=== PATIENT | male | born 1945 | race Caucasian/White ===

== ENCOUNTER → 2016-09-30 | Day surgery (SDC) | payer MEDICARE, MEDICAID ==
[~2016-09-30] VITALS: Ht 182.9 cm; Wt 142.0 kg
[~2016-09-30] MED LIST: 0.9% Sodium Chloride 1,000 ML IV PRN; GABA600T2 PO; LIPOIC ACID PO; MONT10TA20 PO; PRAM0.252 PO; RES15 PO; SILD20TA14 PO; Sodium Chloride LOK Flush 10 mL Syringe IV PRN; TEST200V20 IM; TRAM50TA2 PO; ZOLP10TA5 PO; fentaNYL-PF 50 mCg/mL 2 mL Inj IVPUSH PRN
[2016-09-30 12:57] VITALS: BP 129/73; PULSE 60; RESP 16; O2SAT 96
--- NOTE | 2016-09-30 13:56 | PCM.ENDCOL ---
Colonoscopy Date of Service: Sep 30, 2016 Physician Luis Burgos MD Pre Procedure Diagnosis: Change in bowel pattern constipation to looser stools. Post Procedure Dx & Findings: Polyp hemorrhoids diverticular Procedure Colonoscopy PROCEDURE IN DETAIL: Prep adequate Withdrawal time 14 minutes After unremarkable rectal examination the Olympus video colonoscope was inserted patient's anal canal and was advanced to cecum. Landmarks were identified including the ileocecal valve and appendiceal orifice. Scope was withdrawn systematically. Visualized colonic mucosa showed healthy shiny mucosa with normal healthy-appearing vasculature. In the ascending colon, there was a 1 mm polyp was removed completely using cold forceps. In the descending colon there was a 3 mm polyp which was removed completely using cold snare. In the sigmoid colon a few small diverticuli. In the rectum retroflexion was done which showed hemorrhoids. Anal canal was inspected carefully on the way out and hemorrhoids noted. Impression Polyps times 2 status post complete removal Diverticulosis Hemorrhoids Recommendation Repeat colonoscopy 5 years Diverticular diet Presedation Assessment Risks and Benefits Informed consent was obtained from the patient after all risks and benefits including but not limited to drug reaction, infection, pain, bleeding, perforation, as well as alternatives were discussed. Patient monitoring Continuous pulse oximetry, cardiac monitoring, blood pressure monitoring, IV access, and oxygen at 2L per nasal cannula. Periprocedural Fentanyl: Fentanyl 75mcg Incrementally Midazolam: Midazolam 4mg Incrementally Complications There were no periprocedural complications identified. Post Procedure Plan Post Procedure Recommendations 1. Restrict activities today. 2. Resume normal activities in the morning. 3. Resume medications. 4. Patient informed of normal post procedure side effects as bloating, drowsiness, blood streaking in the stool. 5. average risk CRCS. If colon polyps come back as: -Hyperplastic- can repeat colonoscopy in 10 years -Tubular adenoma- repeat colonoscopy in 5 years -Tubulovillous/villous adenoma- repeat colonoscopy in 3 years -If any dysplasia- return to clinic as soon as possible 6. Please don't hesitate to call me with any questions. Luis Burgos MD Sep 30, 2016 13:56
[2016-09-30 14:00] VITALS: BP 114/68; PULSE 65; RESP 14; O2SAT 96
[2016-09-30 14:19] VITALS: BP 117/68; PULSE 70; RESP 14; O2SAT 98
--- NOTE | 2016-10-02 16:44 | PATH ---
SURGICAL PATHOLOGY Attending Physician:Luis Burgos M.D. CASE STATUS: Signed Out PATIENT NAME: STEFANO BRIAN PID: [id number] : 1945 DATE COLLECTED:09/30/2016 00:00 SPECIMEN: 1: Colon, Polyp 2: Colon, Polyp CLINICAL HISTORY: 1). ASCENDING COLON POLYP 2). DESCENDING COLON POLYP FINAL DIAGNOSIS: 1. Ascending Colon, Polyp, Biopsy: Portions of sessile serrated adenoma x2. 2. Descending Colon, Polyp, Biopsy: Tubular adenoma; negative for high-grade dysplasia. ICD10: K63.5 GROSS DESCRIPTION: The specimen is received in two formalin filled containers labeled with the patient's name. 1). The specimen is labeled "ascending colon polyp" and consists of 2 portions of tissue which aggregate to 0.2 x 0.2 x 0.2 CM. The specimen is entirely submitted in cassette 1A. 2). The specimen is labeled "descending colon polyp" and consists of a 0.3 x 0.3 x 0.2 CM portion of tissue which is entirely submitted in cassette 2A. 10/01/2016ME ICD-9 CODES: CPT CODES: 1: 80100 2: 07570 Electronically Signed Out Marjan Cardona MD [facility] [place] [address] Technical component performed at [facility], [facility] [address], [address]
== END | disposition home or self-care (01) ==
LOC: END 00:14
PROVIDERS: ATTEND Internal Medicine
DX: D12.2 Benign neoplasm of ascending colon (principal); D12.4 Benign neoplasm of descending colon; K57.30 Diverticulosis of large intestine without perforation or abscess without bleeding; K64.8 Other hemorrhoids; G47.30 Sleep apnea, unspecified; M79.7 Fibromyalgia; F31.9 Bipolar disorder, unspecified
CPT/HCPCS: 45380; G0500; J2250; J3010; J7030